=== PATIENT | male | born 1965 | race Caucasian/White ===

== ENCOUNTER 2018-04-18 12:04 | Emergency (ER) | payer OTHER ==
--- NOTE | 2018-04-18 13:08 | ED Physician Documentation ---
PD HPI URI - Stated complaint Stated Complaint: FEVER/COUGH - Chief complaint Chief Complaint: Resp - History obtained from History obtained from: Patient - History of Present Illness Timing - onset: How many days ago (2 days of worse illness, fevers, malaise), How many weeks ago (cough for 2-3 weeks, not improving) Timing duration: Days (he has had cough for 3-4 weeks, similar to spouse, and she went to PMD and Dx wtih pneumonia and Rx abx and is improved though still coughing He still has worse cough. Now also with 3 days of high fevers, malaise, nausea, weakness.) Review of Systems Constitutional: reports: Fever, Chills, Myalgias Nose: reports: Congestion Cardiac: denies: Chest pain / pressure, Palpitations Respiratory: reports: Dyspnea, Cough, Wheezing GI: reports: Nausea, Vomiting. denies: Diarrhea : denies: Dysuria, Frequency Skin: denies: Rash Neurologic: reports: Generalized weakness, Headache. denies: Near syncope, Altered mental status PD PAST MEDICAL HISTORY - Past Medical History Past Medical History: No Cardiovascular: None Respiratory: None Endocrine/Autoimmune: None - Past Surgical History Past Surgical History: No - Present Medications Home Medications: Ambulatory Orders Medication Instructions Recorded Confirmed Albuterol Sulf [Ventolin Hfa 2 - 3 puffs INH Q4HR PRN #1 inhaler 04/18/18 Inhaler] Benzonatate [Tessalon Perle] 100 mg PO TID PRN #25 capsule 04/18/18 Dexamethasone [Decadron] 4 mg PO DAILY #5 tablet 04/18/18 Doxycycline Hyclate 100 mg PO BID #14 capsule 04/18/18 Oseltamivir [Tamiflu] 75 mg PO BID #10 capsule 04/18/18 guaiFENesin/CODEINE [Robitussin AC] 10 ml PO Q6H #240 ml 04/18/18 - Allergies Allergies/Adverse Reactions: Allergies Allergy/AdvReac Type Severity Reaction Status Date / Time No Known Drug Allergies Allergy Verified 04/18/18 12:16 - Social History Does the pt smoke?: Yes Smoking Status: Former smoker Does the pt drink ETOH?: Yes Does the pt have substance abuse?: No - Immunizations Immunizations are current?: Yes - POLST Patient has POLST: No PD ED PE NORMAL - Vitals Vital signs reviewed: Yes - General General: Alert and oriented X 3, Well developed/nourished, Other (appears ill/uncomfortable. ) - HEENT HEENT: Ears normal, Pharynx benign - Neck Neck: Supple, no meningeal sign, No adenopathy - Cardiac Cardiac: No murmur. No: RRR (tachycardic but regular) - Respiratory Respiratory: No: Clear bilaterally (wheezing with central congestion but peripherally sounds without wetness. ) - Abdomen Abdomen: Soft, Non tender - Derm Derm: Normal color, Warm and dry - Extremities Extremities: No edema, No calf tenderness / cord - Neuro Neuro: Alert and oriented X 3, No motor deficit, Normal speech Results - Vitals Vitals: Oxygen O2 Source Room air - Labs Labs: Laboratory Tests 04/18/18 12:41 Influenza A (Rapid) Negative Influenza B (Rapid) Negative - Rads (name of study) chest xray Radiology: Prelim report reviewed PD MEDICAL DECISION MAKING - ED course Complexity details: considered differential (has had bronchitis/pneumonia not treated and now with flu illness. He tests negative but tests positive for flu A and have similar timecourse of symptoms acutely. ), d/w patient Departure - Departure Disposition: 01 Home, Self Care Clinical Impression: Influenza A, Bronchitis Condition: Stable Record reviewed to determine appropriate education?: Yes Instructions: ED Upper Resp Infec Abx Tx, ED Flu Follow-Up: LISBETH SORTO [Primary Care Provider] - Prescriptions: Albuterol Sulf [Ventolin Hfa Inhaler] 2 - 3 puffs INH Q4HR PRN #1 inhaler PRN Reason: Shortness Of Air/Wheezing Benzonatate [Tessalon Perle] 100 mg PO TID PRN #25 capsule PRN Reason: Cough Dexamethasone [Decadron] 4 mg PO DAILY #5 tablet Doxycycline Hyclate 100 mg PO BID #14 capsule guaiFENesin/CODEINE [Robitussin AC] 10 ml PO Q6H #240 ml Oseltamivir [Tamiflu] 75 mg PO BID #10 capsule Comments: For the cough you have had persistently, it does sound possibly some bronchitis. Your chest x-ray does not show any pneumonia. For this we would use albuterol inhaler 2-3 puffs 4 times a day and extra times if needed for wheezing and cough. Tessalon if needed for cough. Decadron steroid anti-inflammatory to reduce bronchial irritation daily for the next 5 days. Will add an antibiotic as it sounds reasonably likely for that to be bacterial. Add cough medicine if needed. Sounds like your new symptoms are now the flu and you can add Tamiflu as directed to try to reduce his symptoms. Tylenol or ibuprofen if needed for fevers and pains. Recheck if not improving over the next several days regarding cough and general wellness though with the flu you are likely to be sick for another 5-7 days still. Discharge Date/Time: 04/18/18 16:03
[2018-04-18] MEDS ORDERED: ALBUTEROL NEB 2.5 MG/3 ML INH STA (13:50)
[2018-04-18] MEDS ORDERED: HYDROcod/ACETAM 5/325 MG TABLET PO STA (13:51)
[2018-04-18] MEDS ORDERED: BENZONATATE 100 MG CAPSULE PO STA (13:51)
[2018-04-18] MEDS ORDERED: DEXAMETHASONE 10 MG/ML VIAL PO STA (13:51)
--- NOTE | 2018-04-18 14:20 | XRAY Report ---
Reason: cough and dyspnea Procedure Date: 04/18/2018 Accession Number: [id number] / [id number] Procedure: XR - Chest 2 View X-Ray CPT Code: 56657 FULL RESULT: EXAM: CHEST RADIOGRAPHY EXAM DATE: 04/18/2018 02:07 PM. CLINICAL HISTORY: Cough and dyspnea. COMPARISON: None. TECHNIQUE: 2 views. FINDINGS: Lungs/Pleura: No focal opacities evident. No pleural effusion. No pneumothorax. Normal volumes. Mediastinum: Heart and mediastinal contours are unremarkable. Other: None. IMPRESSION: Negative chest RADIA
[2018-04-18 15:57] VITALS: BP 137/72
== END 2018-04-18 16:03 | disposition home or self-care (01) ==
LOC: ED 12:04
DX: J10.89 Influenza due to other identified influenza virus with other manifestations (principal); J40 Bronchitis, not specified as acute or chronic; Z87.891 Personal history of nicotine dependence
CPT/HCPCS: 71046; 87275; 87276; 94640; 99283; A9270

== ENCOUNTER 2019-03-30 11:31 | Emergency (ER) | payer OTHER ==
[2019-03-30 11:53] LABS: RAPID STREP SCREEN Negative (Negative)
[2019-03-30] MEDS ORDERED: PENICILLIN G BENZATHINE 600,000 UNIT/ML SYRINGE IM STA (12:25)
[2019-03-30] MEDS ORDERED: DEXAMETHASONE 10 MG/ML VIAL IM STA (12:25)
--- NOTE | 2019-03-30 12:28 | ED Physician Documentation ---
PD HPI HEENT - Stated complaint Stated Complaint: SORE THROAT - Chief complaint Chief Complaint: Heent - History obtained from History obtained from: Patient (Had sore throat for about 2 to 3 days, worse today with some trouble swallowing. No fevers. Mild cough. No recent travel.) Review of Systems Constitutional: denies: Fever, Chills Nose: denies: Rhinorrhea / runny nose, Congestion Throat: reports: Sore throat Cardiac: denies: Chest pain / pressure, Palpitations Respiratory: denies: Dyspnea PD PAST MEDICAL HISTORY - Past Medical History Cardiovascular: None Respiratory: None Endocrine/Autoimmune: None - Past Surgical History Past Surgical History: No - Present Medications Home Medications: Ambulatory Orders Medication Instructions Recorded Confirmed Albuterol Sulf [Ventolin Hfa 2 - 3 puffs INH Q4HR PRN #1 inhaler 04/18/18 Inhaler] Benzonatate [Tessalon Perle] 100 mg PO TID PRN #25 capsule 04/18/18 Doxycycline Hyclate 100 mg PO BID #14 capsule 04/18/18 Oseltamivir [Tamiflu] 75 mg PO BID #10 capsule 04/18/18 dexAMETHasone [Decadron] 4 mg PO DAILY #5 tablet 04/18/18 guaiFENesin/CODEINE [Robitussin AC] 10 ml PO Q6H #240 ml 04/18/18 - Allergies Allergies/Adverse Reactions: Allergies Allergy/AdvReac Type Severity Reaction Status Date / Time No Known Drug Allergies Allergy Verified 03/30/19 11:41 - Social History Does the pt smoke?: Yes Smoking Status: Former smoker Does the pt drink ETOH?: Yes Does the pt have substance abuse?: No - Immunizations Immunizations are current?: Yes - POLST Patient has POLST: No PD ED PE NORMAL - Vitals Vital signs reviewed: Yes - General General: Alert and oriented X 3, No acute distress - HEENT HEENT: Other (Bilateral exudative tonsillitis, symmetric. No uvular deviation. Almost but not quite kissing. No obvious adenopathy but he is a big rema so hard to tell.) - Neck Neck: Supple, no meningeal sign, No bony TTP - Cardiac Cardiac: RRR, No murmur - Respiratory Respiratory: No respiratory distress, Clear bilaterally - Abdomen Abdomen: Non tender - Derm Derm: No rash - Extremities Extremities: No edema, No calf tenderness / cord - Neuro Neuro: Alert and oriented X 3, Normal speech Results - Vitals Vitals: Vital Signs - 24 hr 03/30/19 11:36 Temperature 36.5 C Heart Rate 95 Respiratory 17 Rate Blood Pressure 147/91 H O2 Saturation 95 Oxygen O2 Source Room air - Labs Labs: Laboratory Tests 03/30/19 11:43 Group A Strep Rapid Negative PD MEDICAL DECISION MAKING - ED course ED course: 53-year-old gentleman with kissing tonsillitis, strep negative but treated presumptively with penicillin 1.2 million units IM and dexamethasone 10mg IM. No evidence of abscess at this juncture. Departure - Departure Disposition: 01 Home, Self Care Clinical Impression: Tonsillitis with exudate Condition: Good Record reviewed to determine appropriate education?: Yes Instructions: ED Peritonsillar Infec Abx No I andD Comments: You do have tonsillitis. There is no evidence of abscess clinically. Return for new or worsening symptoms. He received a shot of steroids which should help with the inflammation and a shot of penicillin, 1,200,000 units IM which should take care of the infection.
[2019-03-30 13:20] VITALS: BP 136/82
== END 2019-03-30 13:20 | disposition home or self-care (01) ==
LOC: ED 11:31
DX: J03.90 Acute tonsillitis, unspecified (principal); Z87.891 Personal history of nicotine dependence
CPT/HCPCS: 87070; 87430; 96372; 99283

== ENCOUNTER 2020-12-27 12:32 | Outpatient (CLI) | payer OTHER ==
--- NOTE | 2020-12-27 14:50 | MRI Report ---
PROCEDURE: FOOT WO - LT INDICATIONS: PAIN IN LEFT FOOT TECHNIQUE: Noncontrast coronal and sagittal T1 spin echo and STIR; axial T1 spin echo and T2 fast spin echo with fat saturation through the left foot. COMPARISON: None. FINDINGS: Image quality: Excellent. Bones: Surface skin marker is placed over plantar aspect of forefoot at the level of first metatarsal head there is no marrow edema or metatarsal stress fractures. Mild forefoot joint osteoarthritic malou nges are seen with joint space narrowing and subchondral sclerosis. Osteoarthritic changes also noted involving articulation between first metatarsal head and sesamoid bones. No suspicious intraosseous lesion. Soft tissues: The scanned muscles demonstrate normal overall bulk and internal signal. Subcutaneous tissues appear normal as well. No soft tissue masses are present. No gross plantar plate tear is s een. No ganglion cysts. IMPRESSION: 1. Mild forefoot joint osteoarthritis more prominent in great toe as above. No fracture or dislocatio n. No metatarsal stress fractures. No suspicious intraosseous lesion. 2. Forefoot tendons and ligaments are grossly intact. Reviewed by: Joseph Garcia MD on 12/27/2020 2:49 PM PST Approved by: Joseph Garcia MD on 12/27/2020 2:49 PM PST Station ID: [id number]
== END 2020-12-27 12:33 | disposition home or self-care (01) ==
LOC: DI 12:32
PROVIDERS: ATTEND Student in an Organized Health Care Education/Training Program
DX: M19.072 Primary osteoarthritis, left ankle and foot (principal)

== ENCOUNTER 2021-06-24 15:08 | Outpatient (CLI) | payer OTHER ==
--- NOTE | 2021-06-24 17:03 | MRI Report ---
PROCEDURE: Lumbar Spine W/O INDICATIONS: LUMBAR RADICULOPATHY TECHNIQUE: Noncontrast sagittal T1 spin echo and T2 fast echo, sagittal STIR, axial T1 and T2 fast spin echo thr ough the lumbar spine. In cases with scoliosis, additional coronal T2 fast spin echo may be performe d. COMPARISON: None. FINDINGS: Image quality: Excellent. Alignment and Curvature: There is 5.5 mm anterolisthesis of L5 on S1. Bone Marrow: Marrow is of normal overall signal. No acute vertebral body compression fractures. Spinal Cord: Conus medullaris terminates at the L1-2 level. Visualized cord demonstrates normal sig nal and size. Paraspinous Soft Tissues: No paravertebral masses. T12-L1: Disc desiccation is seen. No significant disc bulge, canal stenosis or neural foraminal narr owing. L1-L2: There is disc desiccation. No significant disc bulge, canal stenosis or neural foraminal na rrowing.. L2-L3: Disc desiccation is seen. Mild diffuse disc bulge is seen, no significant canal stenosis or neural foraminal narrowing. L3-L4: Disc desiccation is noted. Mild broad-based disc bulge and bilateral facet arthrosis is seen with mild central canal stenosis, no significant neural foraminal narrowing. L4-L5: There is disc desiccation. Broad-based disc bulge and bilateral facet arthrosis is noted. Th ere is mild central canal stenosis and left worse than right bilateral neural foraminal narrowing. Bu lging disc likely contacting bilateral exiting L4 nerve roots. L5-S1: Suggestion of bilateral pars defects are noted at this level. There is loss of disc height a nd disc signal. Diffuse disc bulge and bilateral facet arthrosis is noted with mild central canal aime nosis and mild to moderate bilateral neural foraminal narrowing. IMPRESSION: 1. Suggestion of bilateral pars defects at L5 level with 5.5 mm anterolisthesis of L5 on S1. No acute compression fracture. No marrow edema. 2. Degenerative disc bulge and bilateral facet arthrosis at L4-5 and L5-S1 levels causing mild centra l canal stenosis and mild to moderate bilateral neural foraminal narrowing as above. 3. Mild diffuse disc bulge at L2-3 and L3-4 levels as above. Reviewed by: Joseph Garcia MD on 06/24/2021 5:02 PM PDT Approved by: Joseph Garcia MD on 06/24/2021 5:02 PM PDT Station ID: [id number]
== END 2021-06-24 15:09 | disposition home or self-care (01) ==
LOC: DI 15:08
PROVIDERS: ATTEND Student in an Organized Health Care Education/Training Program
DX: M43.17 Spondylolisthesis, lumbosacral region (principal); M47.26 Other spondylosis with radiculopathy, lumbar region; M47.27 Other spondylosis with radiculopathy, lumbosacral region; M51.36 Other intervertebral disc degeneration, lumbar region; M48.061 Spinal stenosis, lumbar region without neurogenic claudication; M51.37 Other intervertebral disc degeneration, lumbosacral region; M48.07 Spinal stenosis, lumbosacral region

== ENCOUNTER 2022-04-11 08:14 | Outpatient (CLI) | payer OTHER ==
--- NOTE | 2022-04-11 09:28 | SLEEP CARE CONSULTATION ---
Information from patient questionnaire entered by Shala Seymour. I have reviewed and concur with the information entered by Shala Seymour. This document represents the service I personally performed and the decisions made by me, Denisha Lipscomb ARNP. History of Present Illness Service Date and Time: 04/11/2022 0814 Reason for Visit: New patient, sleep apnea on CPAP therapy (BiPAP) Chief Complaint: reports: Snoring, Excessive daytime sleepiness, Observed pauses in breathing, Other (UPDATE SUPPLIES) Date of Onset: YRS Usual bedtime: 11AM Time it takes to fall asleep: SOMTIMES I NOD OFF SOMETIMES HRS Snores at night: Yes Observed to quit breathing while asleep: Yes Sleeps alone due to snoring: Yes Number of times waking at night: EVERY 1.5-2 HRS Reasons for waking at night: reports: Bathroom, Other (SOMEONE ENTERING ROOM ) Toss, Turn, or Twitch while sleeping: Yes Recalls having dreams: Yes Usually gets out of bed at: 7PM Feels refreshed in the morning: Yes Morning headache: Yes Sleepy or fatigued during the day: Yes Ever fallen asleep while driving: Yes Takes day naps: Yes Dreams during day naps: Yes Prior sleep studies: Yes (2019) Additional HPI information: ROSS CAMPOVERDE was previously diagnosed to have unknown, AHI unknown, sleep apnea-hypopnea syndrome at [facility] in about 2020 and comes in today to establish care for BIPAP therapy. - Parasomnia Symptoms Ever been unable to move upon waking from sleep: No Walks in sleep: No Talks in sleep: No Ever acted out dreams in sleep: No Ever felt weak in the knees when startled or emotional: No Bothered by creepy, crawly, restless sensations in legs: No Problems with memory or concentration: Yes CPAP Compliance Data - Data Reviewed with Patient Average duration of nightly device use: 2 hours 1 minute Compliance rate %: 0 ( days used) Current pressure setting (cmH2O): Average residual AHI: 2.1 Central apnea: 0.3 Obstructive apnea: 1.4 Compliance data discussion: He is using a ResMed AirCurve 10 Bipap that was set up 10/04/2020. He gets his supplies from [facility]. He is using a nasal pillows mask, Resmed Airfit P10. He states it seals good the first night but then he has trouble with leaking. He is a side sleeper. Subjective Missed days of use due to: reports: mask issues (cannot breathe thru nose well) Patient concerns: reports: mask discomfort, mask leak noise, nasal congestion. denies: aerophagia, air blowing in eyes, condensation in mask/hose, dry mouth, nose, throat, epistaxis Observed to snore while using device: No Current pressure setting perceived as: too high On therapy, patient: reports: other (more tired when he uses his mask). 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 Patient is and lives in [place]. Have you smoked in the past 12 months: No Cigarettes per day (20/pack): 20 Years of smokin Quit date: 2009 Smoking Pack Years: 20.0 Alcohol use: Yes Alcohol amount and frequency: 3-4SHOTS AMONTH NOT OFTEN Caffeine use: Yes Caffeine amount and frequency: DAILY Family History Family history of sleep disordered breathing: Yes Family Hx Sleep Apnea: Mother: Snoring, Sleep apnea - Treated, Father: Snoring, Sibling: Snoring, Sleep apnea - Treated Allergies and Home Medications Known drug allergies: No Drug allergies reviewed: Yes Home medication list reviewed: Yes (see list in EMR) Review of Systems Cardiovascular: denies: high blood pressure, irregular heart rate or pulse Gastrointestinal: reports: heartburn Neurological: denies: headaches Psychiatric: denies: Attention Deficit Hyperactivity, anxiety, depression Ear/Nose/Throat: reports: nasal congestion, sinus problems, injury to nose, wisdom teeth removed Musculoskeletal: reports: back pain, muscle pain or cramping Immunologic: reports: sneezing Physical Exam Vital signs obtained and entered by: SHALA Penaloza MA Blood Pressure: 126/72 (LEFT ARM) Cuff size: regular Heart Rate: 89 O2 Saturation: 96 Height: 5 ft 10 in Weight: 296 lb 9.6 oz Body Mass Index: 42.5 BMI Classification: Morbidly Obese Neck circumference: 20.5 Heart: regular rate and rhythm Lungs: clear bilaterally Impression and Plan 1. Obstructive Sleep Apnea-Hypopnea Syndrome, unknown, with poor treatment compliance and good apnea control. Patient states he cannot breathe through his nose and is currently waiting to schedule surgery to fix a deviated septum, etc. He states he is also looking into an oral appliance to help keep his airway open since he is having such a hard time using his BiPAP. He has been using a nasal pillows mask Resmed P10 but cannot tolerate it for long because the pressure is so high. He was trialled on a CPAP and APAP but he could not breathe against the high pressure needed to control his sleep apnea. He was then put on a BiPAP which he feels is better but still thinks the pressure is too high. He would like to try a full face mask to see if he could tolerate it longer. I feel this would be a better option and wrote for a full face mask fitting. I have not yet received a copy of his last sleep study. Once I get that, I will update his prescription with Alexander. I will have him follow up in 3 months to recheck compliance and see how he is doing on the full face mask. Patient's apnea severity and rationale for treatment to reduce apnea, improve sleep quality and reduce cardiovascular and cerebrovascular events was reviewed. I also reviewed the benefit of consistent device use of CPAP for diabetes, gastric reflux and depression. * Continue BiPAP pressure at 19/15 cmH2O * Update supplies once we get copy of sleep study * Mask fitting for a full face mask * Notify me if snoring with mask or feeling that the pressure is too much or too little * Attempt to lose weight * Call this office if any problems using CPAP * Return for follow up in 3 months, or sooner if concerns arise Counseling Topics: Weight loss health impact Visit Type: In Office Time Spent with Patient (minutes): 38 Provider Statement: I spent 100% of the Face to Face Visit with the patient with greater than 50% spent counseling the patient and coordination of care.
[2022-04-11 09:29] VITALS: BP 126/72
== END 2022-04-11 08:15 | disposition home or self-care (01) ==
LOC: SC 08:14
PROVIDERS: ATTEND Nurse Practitioner Family
DX: G47.33 Obstructive sleep apnea (adult) (pediatric) (principal); E66.01 Morbid (severe) obesity due to excess calories; Z68.41 Body mass index [BMI] 40.0-44.9, adult
CPT/HCPCS: 99203; 99212

== ENCOUNTER 2022-06-29 07:36 | Emergency (ER) | payer OTHER ==
--- OUTSIDE RECORDS SUMMARY | 2022-06-29 07:56 | EXTERNAL MEDICAL SUMMARY RPT | Continuity of Care Document ---
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 3). The left ventricle resting end-diastolic volume is 112 (units unknown) (unknown) (unknown) (no date) (unknown) (unknown) 0.86 (units unknown) (unknown) (unknown) (no date) (unknown) (unknown) 05/14/22 (units unknown) (unknown) (unknown) (no date) (unknown) (unknown) 1) Moderately intens e fixed inferior wall defect that essentially resolves with (units unknown) (unknown) (unknown) (no date) (unknown) (unknown) [address] [place] [address] (units unknown) (unknown) (unknown) (no date) (unknown) (unknown) 2) Normal left ventricular size, wall motion, and systolic function (EF post (units unknown) (unknown) (unknown) (no date) (unknown) (unknown) 3) No diagnostic ST changes with exercise. (units unknown) (unknown) (unknown) (no date) (unknown) (unknown) 4) No angina during the study. (units unknown) (unknown) (unknown) (no date) (unknown) (unknown) 5) Slightly reduced exercise capacity (8.6METs, MORENITA +12%). Target heart rate (units unknown) (unknown) (unknown) (no date) (unknown) (unknown) 6) No prior nuclear stress test available for comparison. (units unknown) (unknown) (unknown) (no date) (unknown) (unknown) A standard Monty treadmill exercise tolerance test was performed by the patient (units unknown) (unknown) (unknown) (no date) (unknown) (unknown) Accession Number: [id number] (units unknown) (unknown) (unknown) (no date) (unknown) (unknown) Age/Sex: 57 / M Date of Service: (units unknown) (unknown) (unknown) (no date) (unknown) (unknown) [place] [address] (units unknown) (unknown) (unknown) (no date) (unknown) (unknown) Appropriate BP respo nse to exercise. (units unknown) (unknown) (unknown) (no date) (unknown) (unknown) Approved by: Lu Beverly MD on 05/15/2022 at 13:00 (units unknown) (unknown) (unknown) (no date) (unknown) (unknown) CARDIAC STRESS: (units unknown) (unknown) (unknown) (no date) (unknown) (unknown) COMPARISON: None. (units unknown) (unknown) (unknown) (no date) (unknown) (unknown) : 1965 Acct:[id number] (units unknown) (unknown) (unknown) (no date) (unknown) (unknown) Dictated by: Lu Beverly MD on 05/15/2022 at 12:57 (units unknown) (unknown) (unknown) (no date) (unknown) (unknown) EKG: No diagnostic E KG changes of ischemia; no ectopy. (units unknown) (unknown) (unknown) (no date) (unknown) (unknown) FINDINGS: (units unknown) (unknown) (unknown) (no date) (unknown) (unknown) Hemodynamic data: Th ere is normal blood pressure and heart rate response to (units unknown) (unknown) (unknown) (no date) (unknown) (unknown) IMPRESSION: Low risk , probably normal treadmill nuclear stress test. (units unknown) (unknown) (unknown) (no date) (unknown) (unknown) INDICATIONS: Unspecified right bundle-branch block (units unknown) (unknown) (unknown) (no date) (unknown) (unknown) IV at peak exercise. A two day-protocol was performed. (units unknown) (unknown) (unknown) (no date) (unknown) (unknown) [facility] (units unknown) (unknown) (unknown) (no date) (unknown) (unknown) Left ventricle function: Gated images demonstrate normal left ventricle wall (units unknown) (unknown) (unknown) (no date) (unknown) (unknown) Loc: [facility] (units unknown) (unknown) (unknown) (no date) (unknown) (unknown) [id number] (units unknown) (unknown) (unknown) (no date) (unknown) (unknown) Myocardial perfusion : Moderately intense fixed inferior wall defect that (units unknown) (unknown) (unknown) (no date) (unknown) (unknown) No segmental wall motion abnormality. No transient ischemic dilation; TID is (units unknown) (unknown) (unknown) (no date) (unknown) (unknown) Nuclear Medicine Report (units unknown) (unknown) (unknown) (no date) (unknown) (unknown) Ordering Provider: Andrew Lee MD (units unknown) (unknown) (unknown) (no date) (unknown) (unknown) PROCEDURE: NM MELO PE RF SPECT REST + STR (units unknown) (unknown) (unknown) (no date) (unknown) (unknown) Patient: Nic Cheng MR#: (units unknown) (unknown) (unknown) (no date) (unknown) (unknown) Procedure: NM melo pe rf SPECT rest + str (units unknown) (unknown) (unknown) (no date) (unknown) (unknown) RADIOPHARMACEUTICAL: 24.9 mCi Tc-99m sestamibi IV at rest and 27.2 mCi Tc-99m (units unknown) (unknown) (unknown) (no date) (unknown) (unknown) Raw data: There is g ood myocardial labeling by radiotracer. No significant (units unknown) (unknown) (unknown) (no date) (unknown) (unknown) Rest and exercise myocardial perfusion SPECT with gated imaging and ejection (units unknown) (unknown) (unknown) (no date) (unknown) (unknown) SPECT images were obtained. SPECT myocardial perfusion images were displayed in (units unknown) (unknown) (unknown) (no date) (unknown) (unknown) Signed (units unknown) (unknown) (unknown) (no date) (unknown) (unknown) Symptoms: Patient denied chest pain during exercise. (units unknown) (unknown) (unknown) (no date) (unknown) (unknown) TECHNIQUE: Radiopharmaceutical was injected at peak stress test, and also at (units unknown) (unknown) (unknown) (no date) (unknown) (unknown) achieved. (units unknown) (unknown) (unknown) (no date) (unknown) (unknown) and less than 0.50 f or thallium tracer). (units unknown) (unknown) (unknown) (no date) (unknown) (unknown) artifacts. Afjb-zm-mlepz ratio is 0.28 (normal is less than 0.38 for sestamibi (units unknown) (unknown) (unknown) (no date) (unknown) (unknown) axis, horizontal baltazar g axis, and vertical long axis views. Gated images were (units unknown) (unknown) (unknown) (no date) (unknown) (unknown) definite (units unknown) (unknown) (unknown) (no date) (unknown) (unknown) essentially (units unknown) (unknown) (unknown) (no date) (unknown) (unknown) exercise (units unknown) (unknown) (unknown) (no date) (unknown) (unknown) fraction (units unknown) (unknown) (unknown) (no date) (unknown) (unknown) functional aerobic impairment (MORENITA) is +12%. (units unknown) (unknown) (unknown) (no date) (unknown) (unknown) imaging, suggesting likely diaphragmatic attenuation. No definite prior (units unknown) (unknown) (unknown) (no date) (unknown) (unknown) infarction and no (units unknown) (unknown) (unknown) (no date) (unknown) (unknown) ischemia. (units unknown) (unknown) (unknown) (no date) (unknown) (unknown) mL. Left (units unknown) (unknown) (unknown) (no date) (unknown) (unknown) motion (units unknown) (unknown) (unknown) (no date) (unknown) (unknown) prior infarction and no ischemia. (units unknown) (unknown) (unknown) (no date) (unknown) (unknown) prone (units unknown) (unknown) (unknown) (no date) (unknown) (unknown) resolves with prone imaging, suggesting likely diaphragmatic attenuation. No (units unknown) (unknown) (unknown) (no date) (unknown) (unknown) rest. (units unknown) (unknown) (unknown) (no date) (unknown) (unknown) reviewed (units unknown) (unknown) (unknown) (no date) (unknown) (unknown) seconds; (units unknown) (unknown) (unknown) (no date) (unknown) (unknown) sestamibi (units unknown) (unknown) (unknown) (no date) (unknown) (unknown) short (units unknown) (unknown) (unknown) (no date) (unknown) (unknown) stress 70%). (units unknown) (unknown) (unknown) (no date) (unknown) (unknown) stress. Patient achieved 93% of maximum predicted heart rate at peak exercise. (units unknown) (unknown) (unknown) (no date) (unknown) (unknown) supervision of an attending staff. The patient exercised for 7 minutes and 48 (units unknown) (unknown) (unknown) (no date) (unknown) (unknown) thickening. (units unknown) (unknown) (unknown) (no date) (unknown) (unknown) tracer, (units unknown) (unknown) (unknown) (no date) (unknown) (unknown) under the (units unknown) (unknown) (unknown) (no date) (unknown) (unknown) using [employer] software. (units unknown) (unknown) (unknown) (no date) (unknown) (unknown) ventricle stress ejection fraction is 70%; normal values are above 45%. (units unknown) (unknown)
[2022-06-29] MEDS ORDERED: PHENYLEPHRINE 10 MG/ML VIAL IC ONE (08:16)
[2022-06-29] MEDS ORDERED: HYDROcod/ACETAM 5/325 MG TABLET PO STA (10:39)
--- NOTE | 2022-06-29 10:43 | ED Physician Documentation ---
PD HPI MALE - Stated complaint Stated Complaint: MALE - Chief complaint Chief Complaint: General - History obtained from History obtained from: Patient, Family - History of Present Illness Timing - onset: Last night (2199) Timing - duration: Hours (12) Timing - details: Abrupt onset, Still present Associated symptoms: Other (erection) PD HPI MALE CONTRIB FACTORS: Sexually active Similar symptoms before: Has not had sx before Recently seen: Not recently seen - Additional information Additional information: Previous well 57-year-old male reports that last night he felt a pain at the base of his penis and he felt this might be a kidney stone so he took some Flomax. He subsequently developed an erection and this erection has not gone down. He presents this morning with 12 hours of a painful erection. He denies giving himself any type of injection he denies any use of Viagra. He denies drug and alcohol use and states that he has never had this happen to him previously. He does not have a history of sickle cell and he is of [place] descent. He does not know anything about the possibility of a thalassemia. Review of Systems Constitutional: denies: Fever Eyes: denies: Decreased vision Ears: denies: Ear pain Nose: denies: Congestion Throat: denies: Sore throat Cardiac: denies: Chest pain / pressure, Palpitations Respiratory: denies: Dyspnea, Cough GI: denies: Abdominal Pain, Nausea, Vomiting, Constipation, Diarrhea : reports: Other (persistent erection). denies: Dysuria, Frequency Skin: denies: Rash Musculoskeletal: denies: Neck pain, Back pain, Extremity pain Neurologic: denies: Generalized weakness, Focal weakness, Numbness PD PAST MEDICAL HISTORY - Past Medical History Past Medical History: Yes Cardiovascular: None Respiratory: None Endocrine/Autoimmune: None - Past Surgical History Past Surgical History: No - Present Medications Home Medications: Ambulatory Orders Medication Instructions Recorded Confirmed Atorvastatin [Lipitor] 40 mg PO DAILY 04/11/22 06/29/22 Clobetasol 0.05% Oint [Temovate 1 applic TOP BID 04/11/22 06/29/22 0.05% Oint] Fexofenadine [Ivy] 180 mg PO DAILY 04/11/22 06/29/22 Fluticasone [Flonase] 2 spray OLIVER DAILY 04/11/22 06/29/22 Gabapentin [Gralise] 300 mg PO DAILY 04/11/22 06/29/22 Lisinopril [Zestril] 10 mg PO DAILY 04/11/22 06/29/22 Naproxen 500 mg PO BID 04/11/22 06/29/22 Omeprazole Magnesium 20 mg PO DAILY 04/11/22 06/29/22 Tacrolimus/Hyaluronate/Niacin 1 applic TOP BID 04/11/22 06/29/22 [Oxianujo 4%-0.1% Cream] Tamsulosin HCl [Flomax] 0.4 mg PO DAILY 04/11/22 06/29/22 metFORMIN [Glucophage] 500 mg PO DAILY 04/11/22 06/29/22 tiZANidine [Zanaflex] 4 mg PO BID PRN 04/11/22 06/29/22 - Allergies Allergies/Adverse Reactions: Allergies Allergy/AdvReac Type Severity Reaction Status Date / Time No Known Drug Allergies Allergy Verified 06/29/22 07:45 - Social History Does the pt smoke?: Yes Smoking Status: Current every day smoker Does the pt drink ETOH?: Yes Does the pt have substance abuse?: No - Immunizations Immunizations are current?: Yes - POLST Patient has POLST: No PD ED PE NORMAL - Vitals Vital signs reviewed: Yes (normal ) - General General: Alert and oriented X 3, No acute distress, Well developed/nourished - HEENT HEENT: Atraumatic, PERRL, EOMI - Respiratory Respiratory: No respiratory distress - Male Male : Other (Erect phallus is present firm and non-bendable) - Derm Derm: Normal color, Warm and dry, No rash - Extremities Extremities: No deformity, No edema - Neuro Neuro: Alert and oriented X 3, hot bread baker 2-12 intact, No motor deficit, No sensory deficit, Normal speech Eye Opening: Spontaneous Motor: Obeys Commands Verbal: Oriented GCS Score: 15 - Psych Psych: Normal mood, Normal affect Results - Vitals Vitals: Vital Signs - 24 hr 06/29/22 06/29/22 07:39 11:29 Temperature 36.6 C Heart Rate 80 76 Respiratory 16 16 Rate Blood Pressure 126/74 127/91 H O2 Saturation 96 97 Oxygen O2 Source Room air Procedures - General procedure General procedure: For priapism: After sterile preparation with iodine a #21 butterfly needle was inserted into the midshaft of the right side of the penis while it was fully erect. 5 mL of dark blood was immediately expressed and 1 mg of phenylephrine was instilled. This resulted in a decrease in pressure but the pain is continued to throb as it was continuing to fill. I subsequently removed 15 more mL of dark blood instilled saline and removed further blood and instilled another milligram of phenylephrine. Despite this the patient's priapism remained. PD Medical Decision Making - ED course Complexity details: considered differential, d/w patient, d/w family, d/w lifestyle consultant (Dr. Otero urology at [facility] recommends transfer to [facility] for failure of procedure. Dr. Dimas urology at [facility] will accept in transfer. ) ED course: 57-year-old male with painful priapism presents to the emergency department. We do not have an on-call urologist and I consulted the urologist at [facility](Dr. Otero) who recommended attempting to up apply the phenylephrine and recommended transfer the patient to the [facility] if he did not have resolution of his symptoms.I attempted to drain the priapism and was successful at removing 20 mils of blood but the installation of the phenylephrine did not prevent continued erection. At this point we contacted [facility] for urologic transfer. There was a delay in the response from the [facility] and during this period of time the patient had an increase in his pain and was administered [place]. He had improvement in his pain and about the time we were able to finally confirm room for a transfer the patient's symptoms resolved and he was discharged to home. Departure - Departure Disposition: 01 Home, Self Care Clinical Impression: Priapism Condition: Good Instructions: ED Priapism Follow-Up: [facility] Emergency Department [Other] Comments: Nic today we were unsuccessful with installation of phenylephrine to resolve your erection. We were able to drain 20 mL of blood and instilled 2 mg of phenylephrine. Because this was unsuccessful we have contacted the [facility] and they would like you to go to the emergency department at [facility] in [place] and a doctor Dimas will be the accepting urologist. Discharge Date/Time: 06/29/22 11:59
[2022-06-29 11:30] VITALS: BP 127/91
== END 2022-06-29 11:59 | disposition home or self-care (01) ==
LOC: ED 07:36
DX: N48.30 Priapism, unspecified (principal); Z87.891 Personal history of nicotine dependence
CPT/HCPCS: 54235; 99282; A9270

== ENCOUNTER 2022-07-08 08:34 | Outpatient (CLI) | payer OTHER ==
--- NOTE | 2022-07-08 09:04 | Sleep Patient Instructions ---
Sleep Center Visit Summary - Patient Visit Information Reason for Visit: 3 month follow up for BIPAP therapy compliance visit - Patient Instructions Additional Instructions: You were here for follow up of BIPAP therapy. You may continued on BiPAP therapy with pressure at 19/15 cmH2O as tolerated. A prescription for an oral appliance was given for you to give to your dentist. You will need a follow up sleep study with the oral appliance in place to check effectiveness. You should follow up with sleep care about a month after you have your new oral device. You may contact us sooner for any questions or concerns. - Clinic Information Contact: [facility] [address] [place] [address] [email or web address] T: [phone]
[2022-07-08 09:13] VITALS: BP 142/92
--- NOTE | 2022-07-08 09:13 | SLEEP CARE CONSULTATION ---
Information from patient questionnaire entered by Shala Seymour. I have reviewed and concur with the information entered by Shala Seymour. This document represents the service I personally performed and the decisions made by me, Denisha Lipscomb ARNP. History of Present Illness Service Date and Time: 07/08/2022 0834 Previous diagnosis: Very Severe, Obstructive Sleep Apnea-Hypopnea Syndrome AHI: 86 Reason for follow up: three month (F/U) Equipment type: BiPAP (RESMED Aircurve, s/u 09/2020; SD CARD NEEDED) Equipment obtained from: [employer] Mask style: Nasal pillows Backup mask available: Yes Prior sleep studies: Yes HPI additional information: ROSS CAMPOVERDE was diagnosed to have very severe, AHI 86, obstructive sleep apnea-hypopnea syndrome and returned today for BIPAP therapy three month follow- up. CPAP Compliance Data - Data Reviewed with Patient Average duration of nightly device use: 2 hour 1 min Compliance rate %: 0 ( days used) Current pressure setting (cmH2O): 19/15 with 4 support Average residual AHI: 2.1 Central apnea: 0.3 Obstructive apnea: 1.4 Average large leak: 2.4 l/min Subjective Missed days of use due to: reports: mask issues (unable to tolerate mask on face), other (going to get nasal surgery) Patient concerns: reports: mask leak noise, nasal congestion. denies: aerophagia, mask discomfort, air blowing in eyes, condensation in mask/hose, dry mouth, nose, throat, epistaxis Current pressure setting perceived as: comfortable On therapy, patient: reports: other (patient has more interrupted sleep when using his PAP machine) Initial Martin Sleepiness Scale score: 8 Current Martin Sleepiness Scale score: 8 (07/08/22) Allergies and Home Medications Known drug allergies: No Drug allergies reviewed: Yes Home medication list reviewed: Yes (no changes) Allergy and home medication list: Allergies No Known Drug Allergies Allergy (Verified 07/07/22 08:36) Review of Systems Review of systems same as previous: Yes (no changes) Physical Exam Vital signs obtained and entered by: SHALA Penaloza MA Blood Pressure: 142/92 (LEFT ARM) Cuff size: long Heart Rate: 94 O2 Saturation: 95 Height: 5 ft 9 in Weight: 292 lb 3.2 oz Body Mass Index: 43.1 BMI Classification: Morbidly Obese Impression and Plan 1. Obstructive Sleep Apnea-Hypopnea Syndrome, very severe, with poor treatment compliance and good apnea control. He does not tolerate using the nasal pillows. I encouraged him to use his BIPAP as tolerated. I did write for a mask fitting for a full face mask but [facility] never reached out to him about this. He does not want to pursue this right now. He has been consulting with an oral surgeon and ENT and he is getting nasal/sinus surgery to help him breathe through his nose. He is also exploring the option of getting an oral appliance and possibly oral corrective surgery for YULISSA. I will write for the oral appliance and advised him that it may not be very effective due to the severity of his sleep apnea. We will need to repeat a sleep study with the oral appliance to verify efficiency. He voiced understanding and agreement. Patient's apnea severity and rationale for treatment to reduce apnea, improve sleep quality and reduce cardiovascular and cerebrovascular events was reviewed. I also reviewed the benefit of con sistent device use of BIPAP for diabetes, gastric reflux anddepression. 2. Obesity, unspecified. Currently patients BMI is 43.1. Obesity increases the risk of apnea, BIPAP pressure requirements and overall health risks especially cardiovascular and diabetes. Thus patient is advised to lose weight. * Continue BIPAP pressure at 19/15 cmH2O as tolerated * Oral appliance * Notify me if snoring with mask or feeling that the pressure is too much or too little * Attempt to lose weight * Call this office if any problems using BIPAP * Return for follow up a month after obtaining new oral device, or sooner if concerns arise Counseling Topics: Weight loss health impact Visit Type: In Office Time Spent with Patient (minutes): 24 Provider Statement: I spent 100% of the Face to Face Visit with the patient with greater than 50% spent counseling the patient and coordination of care.
== END 2022-07-08 08:35 | disposition home or self-care (01) ==
LOC: SC 08:34
PROVIDERS: ATTEND Nurse Practitioner Family
DX: G47.33 Obstructive sleep apnea (adult) (pediatric) (principal); E66.01 Morbid (severe) obesity due to excess calories; Z68.41 Body mass index [BMI] 40.0-44.9, adult
CPT/HCPCS: 99212; 99213